=== PATIENT | male | born 1955 | race Caucasian/White ===

== ENCOUNTER 2021-07-06 21:38 | Emergency (ER) | payer MEDICARE ==
[~2021-07-06] VITALS: Ht 172.7 cm; Wt 65.0 kg
[2021-07-06 22:12] LABS: BASOPHILS % (AUTO) 0.6 % (0-1); EOSINOPHILS % (AUTO) 0 % (0-6); HEMOGLOBIN 16.6 g/dl (14.0-17.9); LYMPHOCYTES # (AUTO) 0.7 X10'3 (1.1-4.8); LYMPHOCYTES % (AUTO) 19.3 % (21-51); MEAN CORPUSCULAR HEMOGLOBIN 29.6 PG (27.0-31.0); MEAN CORPUSCULAR HGB CONC 33.3 g/dL (33.0-36.5); MEAN CORPUSCULAR VOLUME 88.9 FL (78-98); MEAN PLATELET VOLUME 8.7 FL (7.4-10.4); MONOCYTES # (AUTO) 0.3 X10'3 (0-0.9); MONOCYTES % (AUTO) 9.3 % (2-12); NEUTROPHILS # (AUTO) 2.6 X10'3 (1.8-7.7); NEUTROPHILS % (AUTO) 70.8 % (42-75); PLATELET COUNT 130 X10'3 (140-440); RED BLOOD COUNT 5.62 X10'6 (4.70-6.10); RED CELL DISTRIBUTION WIDTH 14.2 % (11.5-14.5); WHITE BLOOD COUNT 3.7 X10'3 (4.5-11.0)
[2021-07-06 22:21] LABS: ALANINE AMINOTRANSFERASE 27 U/L (12-78); ALBUMIN/GLOBULIN RATIO 0.7 (1.1-1.5); ALKALINE PHOSPHATASE 71 IU/L (46-116); ANION GAP 12 (8-16); ASPARTATE AMINO TRANSFERASE 32 U/L (10-37); BILIRUBIN,TOTAL 0.5 MG/DL (0.1-1.0); BLOOD UREA NITROGEN 41 MG/DL (7-18); CALCIUM 8.3 MG/DL (8.5-10.1); CHLORIDE 96 MMOL/L (99-107); CREATININE 3.74 MG/DL (0.60-1.10); GLUCOSE 103 MG/DL (70-104); POTASSIUM 4.1 MMOL/L (3.5-5.1); SODIUM 132 MMOL/L (135-145); TOTAL CARBON DIOXIDE 23.7 MMOL/L (24-32); TOTAL PROTEIN 7.5 G/DL (6.4-8.2); eGFR 16 ML/MIN
[2021-07-06] MEDS ORDERED: normal saline 1000ml 1,000 ML IV ONE ×2 (23:20)
[2021-07-06] MEDS ORDERED: ONDA4TAB12 PO (23:42)
[2021-07-07 01:01] VITALS: BP 141/68
== END 2021-07-07 01:03 | disposition home or self-care (01) ==
LOC: ER 21:39
DX: U07.1 COVID-19 (principal); R11.2 Nausea with vomiting, unspecified; R19.7 Diarrhea, unspecified; R05 Cough; Z95.1 Presence of aortocoronary bypass graft; Z79.899 Other long term (current) drug therapy
CPT/HCPCS: 36415; 71045; 80053; 85025; 87635; 96360; 99284; C9803; J7030